=== PATIENT | female | born 1940 | race Caucasian/White ===

== ENCOUNTER 2018-01-09 03:28 | Emergency (ER) | payer OTHER, MEDICARE ==
[~2018-01-09] VITALS: Ht 160 cm; Wt 64.4 kg
[~2018-01-09 03:28] MED LIST: BYSTOLIC10 M1 PO; IBUPROFEN600 M1 PO; PERCOCET 5-3251 EACH PO; SIMVASTATIN40 M1 PO; TRANDOLAPRIL PO; VALSARTAN80 M1 PO; VITAMIN D250000 UNIT PO; ZOFRAN ODT4 M1 SL
--- NOTE | 2018-01-09 03:31 | ED GENERAL ADULT ---
History of Present Illness General Chief Complaint: General Adult Stated Complaint: "TOUNGE SWELLED UP" Source: patient Exam Limitations: no limitations Vital Signs & Intake/Output Vital Signs & Intake/Output Vital Signs Date Time Temp Pulse Resp B/P B/P Pulse O2 O2 Flow FiO2 Mean Ox Delivery Rate 01/09 0557 97.7 75 18 166/72 98 Room Air 01/09 0337 98.8 97 18 173/73 96 Room Air Allergies Coded Allergies: Sulfa (Sulfonamide Antibiotics) (CHILDHOOD 03/25/17) trandolapril (ANAPHYLAXIS 02/19/17) valsartan (ANAPHYLAXIS 04/02/17) Reconcile Medications Ergocalciferol (Vitamin D2) (Vitamin D2) 50,000 UNIT CAPSULE 1 CAP PO Q3 WEEKS VITAMIN D DEFICIENCY (Reported) Nebivolol HCl (Bystolic) 10 MG TABLET 1 TAB PO DAILY HEART/BP (Reported) Prednisone 20 MG TABLET 1 TAB PO DAILY ALLERGEIC REACTION Simvastatin (Simvastatin*) 40 MG TABLET 1 TAB PO QPM CHOL (Reported) Triage Nurses Notes Reviewed? yes Onset: Abrupt Duration: hour(s): Timing: single episode today Injury Environment: home HPI: 01/09/17 6:05 AM 77-year-old female with a history of intermittent angioedema of the tongue. Presents with similar symptoms. She took Benadryl with only slight resolution. She denies shortness of breath. She does have some swelling to the left lateral aspect of her tongue. No other swelling. No stridor. No rash. No itching. She denies being on an RANJIT inhibitor. She is had multiple prior episodes of this in the past. Past History Travel History Traveled to [place] past 21 day No Medical History Any Pertinent Medical History? see below for history Neurological: NONE EENT: NONE Cardiovascular: hypertension, hyperlipidemia Respiratory: NONE Gastrointestinal: NONE, acid reflux Hepatic: NONE Renal: NONE Musculoskeletal: NONE Psychiatric: NONE Endocrine: NONE Blood Disorders: NONE Cancer(s): NONE GENERAL CLAIMS AGENT/Reproductive: NONE Other Medical Hx: Angioedema Surgical History Surgical History: non-contributory, appendectomy, left shoulder dislocation Psychosocial History What is your primary language [place] Family History Hx Contributory? No Review of Systems Review of Systems Constitutional: Reports: see HPI. Denies: fever. EENTM: Reports: see HPI. Denies: visual changes. Respiratory: Reports: no symptoms. Denies: short of breath. Cardiovascular: Reports: no symptoms. Denies: chest pain. GI: Reports: no symptoms. Denies: vomiting. Genitourinary: Reports: no symptoms. Musculoskeletal: Reports: no symptoms. Skin: Reports: no symptoms. Neurological/Psychological: Reports: no symptoms. Hematologic/Endocrine: Reports: no symptoms. Immunologic/Allergic: Reports: no symptoms. Physical Exam Physical Exam General Appearance: well developed/nourished, alert, awake, anxious, mild distress Head: atraumatic, normal appearance Eyes: Bilateral: normal appearance, PERRL, EOMI. Ears, Nose, Throat: tongue swelling Neck: full range of motion Respiratory: lungs clear Cardiovascular: regular rate/rhythm Peripheral Pulses: 4+ radial (R), 4+ radial (L) Gastrointestinal: soft, non-tender Back: normal inspection, normal range of motion Extremities: normal inspection, no edema Neurologic/Psych: no motor/sensory deficits, awake, alert, oriented x 3 Skin: intact, normal color, warm/dry Core Measures ACS in differential dx? No CVA/TIA Diagnosis: No Sepsis Present: No Sepsis Focused Exam Completed? No Progress Differential Diagnoses I considered the following diagnoses in my evaluation of the patient: [ Angioedema, Jordy angina, oral abscess,] Plan of Care: Current Medications Sig/Sukhwinder Start time Last Medication Dose Stop Time Status Admin Diphenhydramine HCl 25 MG ONCE ONE 01/09 345 AC (Benadryl) 01/09 346 Methylprednisolone 125 MG ONCE ONE 01/09 345 AC (Solu Medrol) 01/09 346 Sodium Chloride 1,000 ML BOLUS ONE 01/09 345 AC (Normal Saline 0.9%) 01/09 0544 Initial ED EKG: none Departure Departure Disposition: HOME OR SELF CARE Condition: Stable Clinical Impression Primary Impression: Allergic reaction Referrals: Dereck Suarez MD Departure Forms: Customer Survey General Discharge Information Prescriptions: Current Visit Scripts Prednisone 1 TAB PO DAILY #5 TAB Comments The patient was treated with IV steroids and IV Benadryl. The tongue swelling resolved in the ED. She was instructed to follow-up with her doctor on Thursday. Prednisone for 5 days was provided. Critical Care Note Critical Care Note Critical Care Time: non-applicable
[2018-01-09 05:57] VITALS: BP 166/72
[2018-01-09] MEDS ORDERED: PREDNISONE20 M1 PO (06:09)
== END 2018-01-09 06:13 ==
LOC: ERH 03:28
DX: T78.40XA Allergy, unspecified, initial encounter (principal)
CPT/HCPCS: 96365; 96366; 96375; J1200; J2930